=== PATIENT | male | born 1960 | race Caucasian/White ===

== ENCOUNTER 2021-08-02 20:32 | Emergency (ER) | payer OTHER ==
[~2021-08-02] VITALS: Ht 177.8 cm; Wt 81.6 kg
[~2021-08-02 20:32] MED LIST: LANS15CA37 PO; LEV500T PO; LIS20T PO
[2021-08-02 21:13] LABS: Basophils # (auto) 0 10 ^3/uL (0-0.2); Basophils % (auto) 0.4 % (0.0-2.0); Eosinophils # (auto) 0 10 ^3/uL (0-0.8); Hematocrit 39.6 % (41.0-53.0); Lymphocytes # (auto) 0.5 10 ^3/uL (0.4-5.4); Lymphocytes % (auto) 4.2 % (10.0-50.0); Mean Corpuscular Hemoglobin 32.5 pg (28.0-32.0); Mean Corpuscular Hgb Conc. 35.5 g/dL (32.0-36.0); Mean Corpuscular Volume 91.6 fL (80.0-100.0); Monocytes # (auto) 1.3 10 ^3/uL (0-1.3); Monocytes % (auto) 10.3 % (0.0-12.0); Neutrophils # (auto) 10.8 10 ^3/uL (1.6-8.6); Neutrophils % (auto) 85.1 % (37.0-80.0); Nucleated Red Blood Cells % 0.1 %; Red Blood Cells 4.32 10^6/uL (4.5-5.90); Red Cell Distribution Width 13.4 % (11.8-14.3); White Blood Cell 12.7 10^3/uL (4.4-10.8)
[2021-08-02 21:27] LABS: Albumin 3.5 g/dL (3.4-5.0); Calcium 7.1 mg/dL (8.5-10.1)
[2021-08-02 21:31] LABS: BUN/Creatinine Ratio 6.6; Bilirubin, Total 1.2 mg/dL (0.2-1.0); Total Protein 6.6 g/dL (6.4-8.2)
[2021-08-02 21:40] LABS: Potassium 2.3 mmol/L (3.5-5.1)
[2021-08-02] MEDS ORDERED: POTASSIUM EFFERVESENT TAB 25 MEQ PO ONE (22:45)
[2021-08-02] MEDS ORDERED: FAMOTIDINE (10MG/ML) 2ML VL IV ONE (23:30)
[2021-08-02] MEDS ORDERED: ALUM & MAG HYDROX-SIMETH LIQ(MAALOX) 30 ML PO ONE (23:30)
[2021-08-03 00:32] VITALS: BP 131/54
== END 2021-08-03 00:28 | disposition left against medical advice (07) ==
LOC: EDBD 20:32 → ER 20:35
DX: M54.50 Low back pain, unspecified (principal); F10.10 Alcohol abuse, uncomplicated; R41.82 Altered mental status, unspecified; I10 Essential (primary) hypertension; W01.0XXA Fall on same level from slipping, tripping and stumbling without subsequent striking against object, initial encounter; Y93.89 Activity, other specified; Y92.89 Other specified places as the place of occurrence of the external cause; Y99.8 Other external cause status
CPT/HCPCS: 36415; 70450; 80053; 80320; 83690; 85025; 93005; 99285; J3490

== ENCOUNTER 2021-08-03 16:37 | Emergency (ER) | payer OTHER ==
[~2021-08-03] VITALS: Ht 177.8 cm; Wt 81.6 kg
[2021-08-03 17:23] LABS: Basophils # (auto) 0 10 ^3/uL (0-0.2); Basophils % (auto) 0.3 % (0.0-2.0); Eosinophils # (auto) 0 10 ^3/uL (0-0.8); Eosinophils % (auto) 0.4 % (0.0-7.0); Hematocrit 39.3 % (41.0-53.0); Lymphocytes # (auto) 0.5 10 ^3/uL (0.4-5.4); Lymphocytes % (auto) 5.4 % (10.0-50.0); Mean Corpuscular Hemoglobin 32.3 pg (28.0-32.0); Mean Corpuscular Hgb Conc. 35.6 g/dL (32.0-36.0); Mean Corpuscular Volume 90.6 fL (80.0-100.0); Monocytes # (auto) 0.7 10 ^3/uL (0-1.3); Monocytes % (auto) 7.3 % (0.0-12.0); Neutrophils # (auto) 8.2 10 ^3/uL (1.6-8.6); Neutrophils % (auto) 86.6 % (37.0-80.0); Nucleated Red Blood Cells % 0.2 %; Red Blood Cells 4.34 10^6/uL (4.5-5.90); Red Cell Distribution Width 13.1 % (11.8-14.3); White Blood Cell 9.4 10^3/uL (4.4-10.8)
[2021-08-03 17:45] LABS: Albumin 3.8 g/dL (3.4-5.0); Anion Gap 13 (5-15); Blood Urea Nitrogen 16 mg/dL (7-18); Calcium 7.8 mg/dL (8.5-10.1); Carbon Dioxide 26 mmol/L (21-32); Chloride 80 mmol/L (98-107); Glucose 99 mg/dL (74-106)
[2021-08-03 17:53] LABS: Alanine Aminotransferase 41 U/L (16-61); Alkaline Phosphatase 67 U/L (45-117); Aspartate Aminotransferase 78 U/L (15-37); BUN/Creatinine Ratio 14.2; Bilirubin, Total 1.8 mg/dL (0.2-1.0); Blood Alcohol < 3.0 mg/dL (0-5); GFR African American 86 mL/min; GFR Non-African American 71 mL/min; Total Protein 6.9 g/dL (6.4-8.2)
[2021-08-03 18:03] LABS: Potassium 2.7 mmol/L (3.5-5.1); Sodium 119 mmol/L (136-145)
[2021-08-03] MEDS ORDERED: POTASSIUM EFFERVESENT TAB 25 MEQ PO ONE (20:15)
[2021-08-03] MEDS: POTASSIUM CHL 20MEQ/50ML 50 ML IV SCH ×2 (20:46→22:27)
[2021-08-03] MEDS ORDERED: LIDOCAINE 5% TOPICAL PATCH TOP ONE (22:00)
[2021-08-03 22:51] LABS: Urine Bacteria NONE SEEN /hpf (None Seen); Urine Blood Negative /uL (Negative); Urine Specific Gravity 1.013 (1.001-1.035); Urine WBC 3 /hpf (0 - 3)
[2021-08-03 22:58] LABS: Alcohol, Urine < 3.0 mg/dL (0-10); Amphetamine Screen, Urine NEGATIVE (NEGATIVE); Barbiturate Scree,Urine NEGATIVE (NEGATIVE); Benzodiazephine Screen, Urine POSITIVE (NEGATIVE); Cannabinoid Screen, Urine NEGATIVE (NEGATIVE); Cocaine Screen, Urine NEGATIVE (NEGATIVE); Opiate Scree,Urine NEGATIVE (NEGATIVE); Phencyclidine Screen, Urine NEGATIVE (NEGATIVE)
[2021-08-04 00:12] LABS: BUN/Creatinine Ratio 13.6; Calcium 7.9 mg/dL (8.5-10.1); Potassium 3.2 mmol/L (3.5-5.1)
[2021-08-04 01:00] VITALS: BP 121/78
[2021-08-04] MEDS ORDERED: POTASSIUM EFFERVESENT TAB 25 MEQ PO ONE (01:30)
== END 2021-08-04 02:39 | disposition home or self-care (01) ==
LOC: ER 16:37
DX: S32.028A Other fracture of second lumbar vertebra, initial encounter for closed fracture (principal); F10.10 Alcohol abuse, uncomplicated; I10 Essential (primary) hypertension; Z79.2 Long term (current) use of antibiotics; Z79.899 Other long term (current) drug therapy; W19.XXXA Unspecified fall, initial encounter; Y93.89 Activity, other specified; Y92.89 Other specified places as the place of occurrence of the external cause; Y99.8 Other external cause status; Y90.0 Blood alcohol level of less than 20 mg/100 ml
CPT/HCPCS: 36415; 72131; 80048; 80053; 80307; 80320; 81001; 82550; 83605; 85025; 93005; 96360; 96361; 99285; J3480